=== PATIENT | male | born 1950 | race Caucasian/White ===

== ENCOUNTER 2023-09-24 09:45 | Emergency (ER) | payer OTHER, SELFPAY ==
[2023-09-24 09:55] VITALS: BP 123/74; PULSE 77; RESP 18; TEMP 37.7; O2SAT 100
--- NOTE | 2023-09-24 10:00 | ED.GENADULT ---
HPI - General Adult General Chief complaint: Urogenital-Male Stated complaint: Right testicle swollen Time Seen by Provider: 09/24/23 10:00 Source: patient, RN notes reviewed and old records reviewed Mode of arrival: ambulatory Limitations: no limitations History of Present Illness HPI narrative: 73-year-old male to [facility] for complaint of right testicular swelling for 2 days. Patient denies urinary urgency, retention, frequency , penile discharge. Patient endorses history type 2 diabetes states that he has been off of his Trulicity for 1 month because his pharmacy can not get it for him. Patient endorses anaphylactic reaction to penicillins. 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 Patient reports that pain and is increasing, especially while driving his truck. Patient uncomfortable in exam room. No acute distress. Related Data Home Medications Medication Instructions Recorded Confirmed amlodipine 10 mg tablet 10 mg PO DAILY 09/24/23 09/24/23 dulaglutide 3 mg/0.5 mL 3 mg subcut WEEKLY 09/24/23 09/24/23 subcutaneous pen injector ([facility]) glipizide 10 mg tablet 20 mg PO BID 09/24/23 09/24/23 losartan 100 mg tablet 100 mg PO DAILY 09/24/23 09/24/23 metoprolol succinate 25 mg 25 mg PO DAILY 09/24/23 09/24/23 tablet,extended release 24 hr pravastatin 40 mg tablet 40 mg PO HS 09/24/23 09/24/23 sitagliptin phosphate 100 mg 100 mg PO WEEKLY 09/24/23 09/24/23 tablet (Januvia) Allergies Allergy/AdvReac Type Severity Reaction Status Date / Time Penicillins Allergy Anaphylaxis Verified 09/24/23 10:06 Review of Systems Review of Systems: All systems reviewed & are unremarkable except as noted in HPI and below Constitutional: Constitutional: Reports no additional constitutional complaints Eyes: Eyes: Reports no additional eye complaints ENT: Reports system reviewed and no additional complaints, except as documented Cardiovascular: Cardiovascular: Reports no additional cardiovascular complaints, Denies chest pain and Denies dyspnea Respiratory: Respiratory: Reports no additional respiratory complaints, Denies cough and Denies dyspnea Genitourinary: Genitourinary: Reports as per HPI, Denies hematuria, Denies oliguria, Denies dysuria, Denies flank pain, Denies penile discharge, Reports scrotal swelling, Reports testicular pain, Denies urinary frequency, Denies urinary hesitancy, Denies urinary incontinence and Denies urinary urgency Musculoskeletal: Musculoskeletal: Reports no additional musculoskeletal complaints Neurologic: Reports system reviewed and no additional complaints, except as documented Psychiatric: Psychiatric: Reports no additional psychiatric complaints PMFSH Comments At the time of my signature, I reviewed and agree with the nursing past medical, surgical, social, and family history. There is no relevant family history pertinent to the patient complaint. Exam Const: General: cooperative, healthy appearing, comfortable, no acute distress, alert and well nourished Nutritional Appearance: well nourished Orientation/consciousness: patient oriented x3 Limitations: no limitations HENMT: Head: normal to inspection Ears: external ears normal Face/Nose/Sinus: Normal external nose present, Normal nares present, normal facial exam, No erythema and No edema Face and sinus: normal facial exam, no erythema and no edema Mouth: Yes Normal oral and palatal mucosa present Eyes: General: appearance normal, both eyes and all related structures Neck: Neck: normal visual inspection, full ROM and no meningeal signs Lymphatic: no lymphadenopathy noted and no lymphedema noted Chest: Chest palpation & inspection: normal inspection of the chest Resp: Effort & Inspection: normal respiratory effort and able to speak in complete sentences Auscultation: clear to auscultation bilaterally Cardio: Jugular venous distension: no JVD Rate: regular rate Rhythm: regula
[2023-09-24 10:18] LABS: Glucose Point of Care 265 mg/dl (65-105)
== END 2023-09-24 10:25 | disposition short-term general hospital (02) ==
PROVIDERS: Emergency Provider Nurse Practitioner Family
DX: N50.89 Other specified disorders of the male genital organs (principal); E11.9 Type 2 diabetes mellitus without complications; Z79.84 Long term (current) use of oral hypoglycemic drugs
CPT/HCPCS: 82948; 99212; G0463